=== PATIENT | male | born 1960 | race Caucasian/White ===

== ENCOUNTER 2017-04-06 13:07 | Emergency (ER) | payer OTHER ==
[~2017-04-06] VITALS: Ht 172.7 cm; Wt 86.2 kg
[2017-04-06 13:47] VITALS: BP 143/89
--- NOTE | 2017-04-06 14:02 | NUR ---
PATIENT PRESENTS TO ED WITH BL EAR PAIN THAT RADIATES TO HEAD;PAIN GREATER ON THE LEFT WITH DISCHARGE 5/10 X 3 DAYSHX; HTN;R OF AMCARD 5MG QD ([facility]) X 8YEARS;DENIES N/V/D; SKIN IS PINK/WARM/DRY; AAOX4 WITH EVEN AND STEADY GAIT; LUNGS CLEAR BL; HR EVEN AND REGULAR; PT DENIES ANY FEVER, CP, SOB, OR COUGH AT THIS TIME; PATIENT STATES PAIN OF 5/10 AT THIS TIME; PATIENT POSITIONED FOR COMFORT; HOB ELEVATED; BEDRAILS UP X2; BED DOWN.
--- NOTE | 2017-04-06 14:47 | NUR ---
PT SITTING ON BED; AT BEDSIDE;LEONA RICHARDSON DISTRESS NOTED;WILL CONTINUE TO MONITOR PT.
[2017-04-06 15:50] VITALS: BP 143/89
--- NOTE | 2017-04-06 15:56 | NUR ---
Patient discharged with v/s stable. Written and verbal after care instructions given and explained. Patient alert, oriented and verbalized understanding of instructions. Ambulatory with steady gait. All questions addressed prior to discharge. ID band removed. Patient advised to follow up with PMD. Rx of AUGMENTIN AND CORTISPORIN OTIC SUSPENSION given. Patient educated on indication of medication including possible reaction and side effects. Opportunity to ask questions provided and answered.
== END 2017-04-06 15:56 | disposition home or self-care (01) ==
LOC: MED 13:07
DX: H66.91 Otitis media, unspecified, right ear (principal); H60.93 Unspecified otitis externa, bilateral; I10 Essential (primary) hypertension
CPT/HCPCS: 99283

== ENCOUNTER 2018-04-27 15:16 | Emergency (ER) | payer OTHER ==
[~2018-04-27] VITALS: Ht 177.8 cm; Wt 89.8 kg
[2018-04-27 15:20] VITALS: BP 185/113
--- NOTE | 2018-04-27 15:29 | NUR ---
PT AMB TO ED BED 6 BY RN
--- NOTE | 2018-04-27 15:30 | NUR ---
PT C/O PERIODIC CHEST PAIN 2/10 "HEAVINESS" X 2 DAYS. DENIES SOB, N/V/DIZZINESS. HX: HTN PT DENIES N/V/D; SKIN IS INTACT, PINK/WARM/DRY; AAOX4, PERRL, WITH EVEN AND STEADY GAIT; LUNGS CLEAR BL, BREATHING UNLABORED; HR EVEN AND REGULAR, BL PERIPHERAL PULSES PRESENT; BS ACTIVE X4, NO TENDERNESS TO PALPATION, NO HEPATOSPLENOMEGALLY PALPATED, RESONANT TO PERCUSSION; PT DENIES ANY FEVER, SOB, OR COUGH AT THIS TIME ADMITS CP; PT STATES 2/10 PAIN AT THIS TIME; VSS; PATIENT POSITIONED FOR COMFORT; HOB ELEVATED; BEDRAILS UP X2; BED DOWN.
--- NOTE | 2018-04-27 15:30 | NUR ---
DR ZHOU NOTIFIED OF HIGH BP, NO NEW ORDERS RECEIVED
--- NOTE | 2018-04-27 15:45 | NUR ---
REPORT GIVEN TO YOU FOSTER
[2018-04-27] MEDS ORDERED: cloNIDine 0.1 MG TAB PO ONE (15:50)
--- NOTE | 2018-04-27 16:05 | NUR ---
blood collected and handed to lab
--- NOTE | 2018-04-27 16:13 | NUR ---
cxr at bedside completed
[2018-04-27 16:16] LABS: BASOPHILS % (AUTO) 0.5 % (0.0-2.0); EOSINOPHILS # (AUTO) 0.2 K/uL (0-0.4); EOSINOPHILS % (AUTO) 2.4 % (0.0-4.0); HEMOGLOBIN 13.1 g/dL (12.0-18.0); LYMPHOCYTES # (AUTO) 1.7 K/uL (2.0-11.5); LYMPHOCYTES % (AUTO) 19.1 % (20.5-51.1); MEAN CORPUSCULAR HEMOGLOBIN 30 pg (27-31); MEAN CORPUSCULAR HGB CONC 34 g/dL (33-37); MEAN CORPUSCULAR VOLUME 88.7 fL (80-94); MONOCYTES # (AUTO) 0.9 K/uL (0.8-1.0); MONOCYTES % (AUTO) 10.7 % (1.7-9.3); NEUTROPHILS # (AUTO) 5.9 K/uL (1.8-7.7); NEUTROPHILS % (AUTO) 67.3 % (42.2-75.2); PLATELET COUNT (AUTO) 282 K/uL (140-450); RED BLOOD CELL COUNT(AUTO) 4.39 MIL/uL (4.20-6.10); RED CELL DISTRIBUTION WIDTH 13.8 % (11.6-13.7); WHITE BLOOD COUNT (AUTO) 8.8 K/uL (4.8-10.8)
[2018-04-27 16:31] LABS: ALBUMIN 3.9 g/dL (3.4-5.0); ANION GAP 13.8 (8-16); CARBON DIOXIDE 26.3 mmol/L (21-32); POTASSIUM 4.1 mmol/L (3.5-5.1); TOTAL BILIRUBIN 0.3 mg/dL (0.0-1.0)
[2018-04-27 16:47] LABS: PROTHROMBIN TIME 10.5 secs (10.8-13.4)
--- NOTE | 2018-04-27 17:43 | NUR ---
DENIES CP NO SOB OR DIZZINESS AT THIS TIME---PT HOLDING CONVERSATION WITH AT BEDSIDE. AWAITS DISPO
[2018-04-27 18:08] VITALS: BP 129/63
--- NOTE | 2018-04-27 18:09 | NUR ---
Patient discharged with v/s stable. Written and verbal after care instructions given and explained. Patient alert, oriented and verbalized understanding of instructions. Ambulatory with steady gait. All questions addressed prior to discharge. ID band removed. Patient advised to follow up with PMD. Rx of CLONIDINE given. Patient educated on indication of medication including possible reaction and side effects. Opportunity to ask questions provided and answered.
== END 2018-04-27 18:09 | disposition home or self-care (01) ==
LOC: MED 15:16
DX: I16.0 Hypertensive urgency (principal); R07.89 Other chest pain; I10 Essential (primary) hypertension
CPT/HCPCS: 36415; 71045; 80053; 83880; 84484; 85025; 85610; 85730; 93005; 99285; Q0092